=== PATIENT | female | born 1985 | race Caucasian/White ===

== ENCOUNTER 2021-04-25 04:58 | Emergency (ER) | payer OTHER ==
[~2021-04-25] VITALS: Ht 165.1 cm; Wt 69.0 kg
--- NOTE | 2021-04-25 05:32 | PHYS DOC ---
Past History Additional Past Medical Histor: Drug abuse Past Medical History Limited secondary to acuity of cardiopulmonary arrest Past Surgical History Limited secondary to acuity of cardiopulmonary arrest Drug Use: Heroin Social History Limited secondary to cardiopulmonary arrest General Adult EDM: Chief Complaint: CODE BLUE HPI: HPI: 35-year-old female presents via EMS with report of CODE BLUE. Patient found in her apartment complex by co-residents unresponsive next to her bed on floor. Patient a known heroin abuser. Multiple Narcan boxes noted by bedside by EMS. Other drug paraphernalia also noted. EMS reports called out at 0400. EMS reports patient pulseless. ACLS protocol initiated. Initial cardiac rhythm noted to be asystole. Mechanical compressions initiated with Best device. Paramedics report patient with significant amount of vomitus in mouth that required clearing. Intubation was performed. With 7.0 cuffed ET tube that was marked at 23 cm at the teeth. Narcan 4 mg provided. Paramedics report change in rhythm to PEA however no return of spontaneous circulation despite 6 rounds of epinephrine provided. Patient arrives to ED in continued PEA arrest. History of present illness limited secondary to cardiopulmonary arrest. Review of Systems: Review of Systems: Review of systems limited secondary to cardiopulmonary arrest Physical Exam: PE: Constitutional: Unresponsive, no spontaneous movement HENT: Normocephalic, atraumatic, ET tube in place with vomitus remnants noted Eyes: Pupils fixed and dilated, conjunctiva injected, no discharge Neck: No crepitance, supple Lungs & Thorax: Apnea, artificial respirations with [id number], equal chest rise and fall, coarse breath sounds throughout Abdomen: Distended Skin: Cool to touch, dry Extremities: No deformity, no edema Neurologic: Alert and oriented X 0, GCS 3 EKG: EKG: [] Radiology/Procedures: Radiology/Procedures: [] Heart Score: C/O Chest Pain: N/A Course & Med Decision Making: Course & Med Decision Making Pertinent Lab studies reviewed. (See chart for details) Patient presents via EMS as CODE BLUE with reported call to EMS of unresponsiveness at 0400. Patient known heroin abuser. Patient was significant amount of vomitus in mouth upon EMS arrival. ACLS initiated by EMS with report of initial asystole rhythm that did convert to PEA. Patient did receive 4 mg of Narcan as well as 6 mg of epinephrine prior to arrival to hospital without any return of spontaneous circulation. Patient's pupils fixed and dilated upon arrival. An ET tube was placed prehospital. ACLS continued with additional 2 rounds of epinephrine. Accu-Chek was obtained and 123. At 0500 pulse check obtained without palpable pulses noted by myself and nursing staff. Bedside ultrasound quickly performed without signs of cardiac activity. Time of therefore called at 0500. Dragon Disclaimer: Dragon Disclaimer: This electronic medical record was generated, in whole or in part, using a voice recognition dictation system. Ultrasound Progress Bedside ultrasound for termination of CODE BLUE: Hand hygiene utilized. Wound cleaned with ChloraPrep. Bedside ultrasound utilized by myself with phased-array probe. Transthoracic imaging interpreted by myself with no spontaneous cardiac activity. Time of therefore called at 0500. Departure Departure: Impression: Primary Impression: Cardiopulmonary arrest Disposition: 20 Condition: Critical Care Time Critical care time was 30 minutes which includes time at bedside, spent in discussion of patient's care with specialists and/or family members, with interpretation of laboratory and/or radiological studies and is exclusive of procedures. KENNY FROST DO Apr 25, 2021 05:32
[2021-04-25] MEDS ORDERED: EPINEPHrine SYRINGE 1 MG/10 ML SYRINGE. IV ONE ×2 (06:00)
== END 2021-04-25 09:19 ==
LOC: ER 04:58
DX: I46.9 Cardiac arrest, cause unspecified (principal)
CPT/HCPCS: 82947; 92950; 99285; J0171